=== PATIENT | male | born 1940 | race African-American/Black ===

== ENCOUNTER 2019-02-27 05:38 | Inpatient (IN) | payer OTHER ==
[~2019-02-27] VITALS: Ht 180.3 cm; Wt 62.3 kg
--- NOTE | ~2019-02-27 | HC ---
[facility] [place] [address] CONSULTATION Name: CHELSI ONEAL Room #: 364-P [facility] IN .R.#: [id number] Admission: 02/27/19 Attend Phys: Karsten Dukes MD Discharge: 02/28/19 Date of : 44 Report #: [id number] THIS REPORT FOR: //name// CC: Karsten Dukes Physician staff COMPA JARA DATE OF SERVICE: 02/28/2019 NEPRHOLOGY CONSULTATION ATTENDING PHYSICIAN: Dr. Dukes. REASON FOR CONSULTATION: Chronic kidney disease. HISTORY OF PRESENT ILLNESS: A 78-year-old gentleman with longstanding diabetes and hypertension and gradually chronically progressive chronic kidney disease, recently moved here from [place]. He was followed by a dental office receptionist there. Creatinine is about 3. PAST MEDICAL HISTORY: The patient has longstanding 35 years history of diabetes and hypertension. He had coronary bypass surgery 25 years ago. No subsequent chest pain or stents required. He had prostate cancer about 20 years ago and had cryosurgery. No other treatment. He has had a cervical spine operation with a plate put in his neck due to cervical disk disease and has had chronic right hip pain as well. He also has remote nephrolithiasis. HOME MEDICATIONS: Include amlodipine 10 mg daily, hydralazine 50 mg daily, isosorbide 20 mg daily, Lipitor 40 mg daily, metoprolol tartrate 100 mg daily, iron, furosemide 40 mg daily, Aricept 10 mg daily, and insulin. SOCIAL HISTORY: Recently moved back here from [facility] where he lived most of his life. Remote cigarette smoker, but quit 25 years ago. Occasional social alcohol user. REVIEW OF SYSTEMS: GENERAL: He has felt pretty well. EYES: He apparently did have laser surgery in his right eye, possibly for diabetic changes. ENT: Hearing okay, swallows okay. No mouth sores or ulcers. ENDOCRINE: Positive for the diabetes. RESPIRATORY: Denies shortness of air, cough, hemoptysis, pleuritic pain. CARDIAC: No chest pain, palpitations or swelling. GASTROINTESTINAL: No nausea, vomiting or diarrhea. GENITOURINARY: No dysuria or hematuria. MUSCULOSKELETAL: No arthritis. [facility] [address] [place] [address] CONSULTATION Name: CHELSI ONEAL Room #: 364-P [facility] IN ..#: [id number] Admission: 02/27/19 Attend Phys: Karsten Dukes MD Discharge: 02/28/19 Date of : 44 Report #: [id number] SKIN: No skin rash. NEUROLOGIC: No seizure, syncope, stroke or peripheral neuropathy. PHYSICAL EXAMINATION: GENERAL: This is a reasonably well-appearing gentleman, in no distress. SKIN: Unremarkable. SKELETAL: Well developed, well nourished. HEENT: Extraocular movements are full. No scleral icterus. Hearing and vision are intact. Mucous membranes are moist. Tongue, buccal mucosa is benign. NECK: Supple, no lymphadenopathy or carotid bruits. CHEST: Clear to auscultation. HEART: Regular. ABDOMEN: Soft and nontender. EXTREMITIES: Show no peripheral edema. LABORATORY DATA: Urinalysis showed 1+ protein and evidence of UTI. Hemoglobin is 11.2, sodium 137, potassium 3.4, chloride 104, bicarbonate 23, creatinine 2.9, BUN 46. ASSESSMENT AND PLAN: 1. Chronic kidney disease. He has somewhat advanced chronic kidney disease. He will need to be followed up in our office. He will need chronic follow up here in [place]. At this point, we will continue his home meds as before with further evaluation for chronic kidney disease treatment including preparation for chronic dialysis. 2. Diabetes mellitus, longstanding. 3. Hypertension, longstanding. 4. History of prostate cancer. 6. History of coronary artery bypass surgery. 6. History of cervical spine surgery. 7. Chronic right hip pain. By: [id number] Jose De Jesus Sanabria MD /nt
[2019-02-27 05:41] VITALS: BP 168/81
[2019-02-27] MEDS ORDERED: AMLODIPINE BESY10 MG PO (05:59)
[2019-02-27] MEDS ORDERED: HYDRALAZINE 2525 MG PO (06:00)
[2019-02-27] MEDS ORDERED: LIPITOR40 MG PO (06:01)
[2019-02-27] MEDS ORDERED: FEOSOL325 M1 PO (06:01)
[2019-02-27] MEDS ORDERED: ISOSORBIDE DINITRATE PO (06:01)
[2019-02-27] MEDS ORDERED: PLAVIX 75 MG TA75 M1 PO (06:02)
[2019-02-27] MEDS ORDERED: LASIX 40 MG TAB40 M2 PO (06:02)
[2019-02-27] MEDS ORDERED: LOPRESSOR100 M1 PO (06:02)
[2019-02-27] MEDS ORDERED: ARICEPT 5 MG TAB5 MG PO (06:03)
[2019-02-27] MEDS ORDERED: NOVOLOG100 UNIT/1 (06:04)
[2019-02-27 06:23] LABS: ABSOLUTE NEUTROPHILS 4.4 thou/uL (1.4-8.2); BASOPHILS 0.6 % (0.0-2.0); EOSINOPHILS 0.4 % (0.0-3.0); HEMATOCRIT 35.3 % (42.0-52.0); HEMOGLOBIN 11.6 gm/dL (14.0-18.0); LYMPHOCYTES 9.4 % (24.0-44.0); MCH 28.9 pg (26.0-34.0); MCV 87.4 fL (80.0-100.0); PLATELET COUNT 133 thou/uL (150-400); POLYS 83.6 % (36.0-66.0); RBC 4.04 mil/uL (4.50-6.00); RDW 16.4 % (10.5-14.5); WBC 5.2 thou/uL (4.0-11.0)
[2019-02-27 06:28] LABS: CALCIUM 9.3 mg/dL (8.5-10.1); CREATININE 3.1 mg/dL (0.7-1.3); POTASSIUM 3.9 mmol/L (3.5-5.1)
[2019-02-27 06:36] LABS: MAGNESIUM 2.3 mg/dL (1.8-2.4); TROPONIN-I 0.25 ng/mL (<0.06)
[2019-02-27 09:16] LABS: URINE BILIRUBIN NEGATIVE (Negative); URINE BLOOD NEGATIVE (Negative); URINE CLARITY CLEAR; URINE COLOR YELLOW; URINE GLUCOSE-RANDOM* NEGATIVE (Negative); URINE KETONES NEGATIVE (Negative); URINE LEUKOCYTES-REFLEX 2+ (Negative); URINE NITRITE-REFLEX NEGATIVE (Negative); URINE PROTEIN (DIPSTICK) 1+ (Negative); URINE SPECIFIC GRAVITY 1.015 (1.005-1.035); URINE UROBILINOGEN 0.2 E.U./dl (0.2-1.0)
[2019-02-27 09:25] LABS: BACTERIA-REFLEX >30 Many /HPF (None Seen); CRYSTALS None Seen /LPF (None Seen); HYALINE CASTS 0-3 Few /LPF (None Seen); SQUAMOUS None Seen /LPF (0-3); URINE RBC None Seen /HPF (0-2); WBC CLUMPS Few (None Seen)
[2019-02-27 10:27] VITALS: BP 175/75
[2019-02-27 10:33] VITALS: BP 175/75
[2019-02-27 10:47] VITALS: BP 169/85
--- NOTE | 2019-02-27 10:59 | EKG ---
[address] [address] ELECTROCARDIOGRAM REPORT Name: CHELSI ONEAL Room #: 364-P ADM IN M.R.#: [id number] Admission: 02/27/19 Attend Phys: Karsten Dukes MD Discharge: Date of : 44 Report #: [id number] THIS REPORT FOR: //name// [facility] ED Test Date: 2019-02-27 Test Time: 06:16:34 Pat Name: CHELSI ONEAL Department: Room: 364 Gender: M Warehouse Order Puller: [id number] : 1940 Requested By: Jennifer Gruber Order Number: [id number] MD: David Pacheco Measurements Intervals Prosper Rate: 54 P: 41 VA: 168 QRS: 13 QRSD: 87 T: 7 QT: 500 QTc: 474 Interpretive Statements Sinus bradycardia Nonspecific ST and T wave abnormality No previous ECG available for comparison Electronically Signed On 02-27-2019 10:59:21 CDT by David Pacheco [email or web address] <ELECTRONICALLY SIGNED> By: David Pacheco MD, [facility] 02/27/19 1059 0616 5 David Pacheco MD, FACC /EPI
--- NOTE | 2019-02-27 17:51 | NUR ---
ASSUMED CARE OF PATIENT NEAR 0900 WHEN HE WAS ADMITTED TO . PATIENT RECIEVED ADMISSION ASSESSMENT AND ANTIBIOTIC THERAPY FOR A UTI WELL INSULIN. THERE IS AN ORDER FOR A NEPHROLOGY CONSULT DUE TO POOR LABS.
[2019-02-27 19:31] VITALS: BP 182/86
[2019-02-28 00:15] VITALS: BP 152/79
[2019-02-28 05:05] VITALS: BP 146/66
[2019-02-28 05:49] LABS: HEMATOCRIT 33.4 % (42.0-52.0); HEMOGLOBIN 11.2 gm/dL (14.0-18.0); MCH 29.3 pg (26.0-34.0); MCHC 33.4 g/dL (28.0-37.0); MCV 87.7 fL (80.0-100.0); RBC 3.81 mil/uL (4.50-6.00); RDW 17.3 % (10.5-14.5)
[2019-02-28 06:02] LABS: CALCIUM 8.7 mg/dL (8.5-10.1); CREATININE 2.9 mg/dL (0.7-1.3); POTASSIUM 3.4 mmol/L (3.5-5.1)
--- NOTE | 2019-02-28 07:28 | NUR ---
bp elevated tonight. gave one dose of norvasc and iv hydralazine, with effective resultz. he has rested well tonight. denies pain.
[2019-02-28 08:01] VITALS: BP 142/78
--- NOTE | 2019-02-28 10:41 | NUR ---
INITIAL ASSESSMENT: Received high risk nursing referral. SW reviewed chart and spoke with nursing. Pt was admitted due to UTI/elevated troponin. Renal consulted to evaluate pt. SW met with pt at bedside. Introduced role of SW. Pt is alert/orientated x 4. Pt reports he lives at home with his sister. Prior to admission, pt was independent with ADLs. Pt has a cane. No hx of services or SNF/Rehab placement. Pt's PCP is Dr. Say Jean. This is his new PCP and he had an appt to see him today. Pt states he may be ready for discharge home later today. Pt states he will have transportation home. No SW needs identified at this time, but is available to assist should needs arise.
[2019-02-28] MEDS ORDERED: TYLENOL325 MG PO (12:46)
[2019-02-28] MEDS ORDERED: ISORDIL10 MG PO (12:46)
[2019-02-28] MEDS ORDERED: CEFUROXIME500 MG PO (12:51)
[2019-02-28] MEDS ORDERED: IRON325 PO (13:10)
[2019-02-28 13:15] VITALS: BP 142/78
[2019-02-28 13:24] VITALS: BP 142/78
--- NOTE | 2019-02-28 15:17 | NUR ---
1330- PT GIVEN DISCHARGE INSTRUCTIONS, RX, EDUCATIONAL INFORMATION AND QUESTIONS ANSWERED. PIV AND TELE DC'D. PT CALLED DAUGHTER TO COME PICK HIM UP
== END 2019-02-28 14:10 | disposition home or self-care (01) | DRG 690 ==
LOC: ER 05:38 → 3W 09:58 → EROBS 09:58 → 3W 10:32
PROVIDERS: Emergency Medicine; ADMIT Hospitalist
DX: N39.0 Urinary tract infection, site not specified (principal); N18.4 Chronic kidney disease, stage 4 (severe); I12.9 Hypertensive chronic kidney disease with stage 1 through stage 4 chronic kidney disease, or unspecified chronic kidney disease; E11.22 Type 2 diabetes mellitus with diabetic chronic kidney disease; E78.5 Hyperlipidemia, unspecified; E11.649 Type 2 diabetes mellitus with hypoglycemia without coma; I25.10 Atherosclerotic heart disease of native coronary artery without angina pectoris; E87.6 Hypokalemia; F03.90 Unspecified dementia, unspecified severity, without behavioral disturbance, psychotic disturbance, mood disturbance, and anxiety; G89.29 Other chronic pain; M25.551 Pain in right hip; Z87.891 Personal history of nicotine dependence; Z85.46 Personal history of malignant neoplasm of prostate; Z95.1 Presence of aortocoronary bypass graft; Z79.899 Other long term (current) drug therapy; Z79.4 Long term (current) use of insulin
CPT/HCPCS: 10080

== ENCOUNTER → 2019-05-11 | Outpatient (CLI) | payer OTHER ==
[~2019-05-11] MED LIST: AMLODIPINE BESY10 MG PO; ARICEPT10 M1 PO; CEFUROXIME500 MG PO; CLOPIDOGREL75 MG PO; FEOSOL325 M1 PO; HYDRALAZINE 2525 MG PO; IRON325 PO; ISORDIL10 MG PO; ISOSORBIDE DINITRATE PO; ISOSORBIDE MONO20 MG PO; LASIX 40 MG TAB40 M2 PO; LIPITOR40 MG PO; LOPRESSOR100 M1 PO; NOVOLIN 70100 UNIT/1 SUBQ; NOVOLOG100 UNIT/1; PLAVIX 75 MG TA75 M1 PO; TORSEMIDE10 MG PO; TYLENOL325 MG PO
[2019-05-11 13:55] VITALS: BP 147/79
[2019-05-11 14:50] VITALS: BP 147/79
[2019-05-11 15:10] VITALS: BP 150/85
[2019-05-11 15:40] VITALS: BP 153/92
--- NOTE | 2019-05-11 16:00 | NUR ---
PT HERE FOR 1ST OF 2 INJECTAFER INFUSIONS. REPORTS FATIGUE, WEAKNESS, DYSPNEA ON EXERTION. SISTER, ADRIANA, WITH PT. PT IS CURRENTLY LIVING WITH HIS SISTER, HORTENCIA BUT PLANS TO MOVE WITH HIS SISTER TO THEIR MOM'S HOUSE SOON WHERE SHE WILL HELP CARE FOR HIM. PT HAS JUST MOVED HERE THIS YEAR FROM [place] TO BE NEAR FAMILY. PT AND SISTER INFORMED ABOUT IRON INFUSION AND WHAT TO EXPECT TODAY. TEACHING MATERIALS GIVEN. INJECTAFER INFUSED OVER 30 MIN THEN PT WATCHED AN ADDITIONAL 30 MINUTES. TOLERATED WELL WITH NO S/S REACTION. VSS. PT UP TO BR X 2, USES CANE WHEN HE WALKS BUT HAS TROUBLE D/T R HIP PAIN. ENCOURAGED SISTER TO LOOK INTO GETTING A PT EVALUATION ORDERED FOR PT WHILE HE AWAITS HIP REPLACEMENT. PT DISMISSED IN STABLE CONDITION. SCHEDULED TO RETURN AGAIN NEXT WEEK ON THU.
== END ==
LOC: OPONC 01:32
DX: D50.9 Iron deficiency anemia, unspecified (principal); I12.9 Hypertensive chronic kidney disease with stage 1 through stage 4 chronic kidney disease, or unspecified chronic kidney disease; E11.22 Type 2 diabetes mellitus with diabetic chronic kidney disease; N18.4 Chronic kidney disease, stage 4 (severe); I25.10 Atherosclerotic heart disease of native coronary artery without angina pectoris; Z87.891 Personal history of nicotine dependence; Z85.46 Personal history of malignant neoplasm of prostate
CPT/HCPCS: 95000

== ENCOUNTER → 2019-05-18 | Outpatient (CLI) | payer OTHER ==
[2019-05-18 13:30] VITALS: BP 138/80
[2019-05-18 14:12] VITALS: BP 135/82
[2019-05-18 14:40] VITALS: BP 139/80
--- NOTE | 2019-05-18 14:45 | NUR ---
PT HERE FOR 2ND AND FINAL INJECTAFER INFUSION. REPORTS DOING WELL WITH HIS FIRST WHICH HIS SISTER CONFIRMS. TOLERATED TODAY'S INFUSION TODAY WITHOUT INCIDENT, NO S/S REACTION. VSS. WATCHED FOR 30 MIN POST, DISMISSED IN STABLE CONDITION.
== END ==
LOC: OPONC 00:16
DX: N18.4 Chronic kidney disease, stage 4 (severe) (principal); D50.9 Iron deficiency anemia, unspecified
CPT/HCPCS: 95000

== ENCOUNTER 2019-06-24 22:39 | Inpatient (IN) | payer OTHER ==
[~2019-06-24] VITALS: Ht 175.3 cm; Wt 76.7 kg
[2019-06-24 22:44] VITALS: BP 159/100
[2019-06-24 23:21] LABS: ABSOLUTE NEUTROPHILS 2.7 thou/uL (1.4-8.2); BASOPHILS 1.4 % (0.0-2.0); EOSINOPHILS 2.8 % (0.0-3.0); HEMATOCRIT 36.1 % (42.0-52.0); HEMOGLOBIN 11.5 gm/dL (14.0-18.0); LYMPHOCYTES 17.5 % (24.0-44.0); MONOCYTES 10.2 % (1.0-8.0); POLYS 68.1 % (36.0-66.0); RBC 3.72 mil/uL (4.50-6.00)
[2019-06-24 23:39] LABS: URINE BILIRUBIN NEGATIVE (Negative); URINE BLOOD TRACE (Negative); URINE CLARITY CLEAR; URINE COLOR YELLOW; URINE GLUCOSE-RANDOM* NEGATIVE (Negative); URINE KETONES NEGATIVE (Negative); URINE LEUKOCYTES-REFLEX NEGATIVE (Negative); URINE NITRITE-REFLEX NEGATIVE (Negative); URINE PROTEIN (DIPSTICK) 1+ (Negative); URINE SPECIFIC GRAVITY 1.015 (1.005-1.035); URINE UROBILINOGEN 0.2 E.U./dl (0.2-1.0)
[2019-06-24 23:55] LABS: CALCIUM 8.1 mg/dL (8.5-10.1); CREATININE 3.8 mg/dL (0.7-1.3); POTASSIUM 3.5 mmol/L (3.5-5.1)
[2019-06-24 23:58] LABS: BACTERIA-REFLEX None Seen /HPF (None Seen); CRYSTALS None Seen /LPF (None Seen); HYALINE CASTS 0-3 Few /LPF (None Seen); MUCUS 0-3 Light strn/LPF (None Seen); SQUAMOUS None Seen /LPF (0-3); URINE RBC 0-2 Rare /HPF (0-2); URINE WBC-REFLEX None Seen /HPF (0-5)
[2019-06-25] VITALS (8 sets, daily range): BP systolic 135–163; BP diastolic 74–102
[2019-06-25 00:05] LABS: TROPONIN-I 0.22 ng/mL (<0.06)
[2019-06-25 00:21] LABS: PLATELET COUNT 96 thou/uL (150-400)
[2019-06-25 00:22] LABS: ANISOCYTOSIS 2+; BURR CELLS FEW; OVALOCYTES FEW; PLATELET ESTIMATE DECREASED; POIKILOCYTOSIS 1+
[2019-06-25 00:23] LABS: SCHISTOCYTES OCCASIONAL
[2019-06-25] MEDS ORDERED: PLAVIX 75 MG TA75 MG PO (01:28)
[2019-06-25] MEDS ORDERED: TOPROL XL25 MG PO (01:29)
--- NOTE | 2019-06-25 05:14 | NUR ---
ASSUMED CARE OF PT DURING ADMISSION TO THE UNIT. PT'S A&Ox3 W/ OCCASIONAL CONFUSION. VS STABLE, BP HAS BEEN RUNNING HIGH W/ SBP IN 150'S. LE EDEMA AND PENIS EDEMA IS 3. C/O FEELING LIKE HE HAS TO URINATE AND REQUESTED TO STAND TO WORK IT OUT. AVALOS CATH IS IN PLACE AND LASIX DRIP INITIATED ORDERED. FLUID RESTRICTION FOLLOWED. CURRENTLY RESTING WITH BLE ELEVATED. PROGRESSING TOWARDS POC.
--- NOTE | 2019-06-25 12:33 | 2DMMODE ---
[facility] [address] [place] [address] 2 D/M-MODE ECHOCARDIOGRAM Name: CORY ONEALBECKI Room #: 350-P [facility] IN M.R.#: [id number] Admission: 06/25/19 Attend Phys: Mike Puckett MD Discharge: Date of : 44 Report #: [id number] THIS REPORT FOR: //name// APPROVED REPORT Study performed: 06/25/2019 09:11:50 EXAM: Comprehensive 2D, Doppler, and color-flow Echocardiogram Patient Location: Bedside Room #: 350 Status: on-call BSA: 1.99 HR: 65 bpm BP: 149/87 mmHg Rhythm: NSR Other Information Study Quality: Excellent Indications Bilateral leg edema, dyspnea, acute fluid overload, elevated BNP and troponin. Hx: CABG, DM, HTN. 2D Dimensions RVDd: 46.67 mm IVSd: 12.00 (7-11mm) LVOT Diam: 22.94 (18-24mm) LVDd: 58.00 mm PWd: 12.00 (7-11mm) Ascending Ao: 40.16 (22-36mm) LVDs: 50.68 (25-40mm) Aortic Root: 41.75 mm Volumes Left Atrial Volume (Systole) Single Plane 4CH: 111.11 mL Single Plane 2CH: 110.61 mL LA ESV Index: 59.00 mL/m2 Aortic Valve AoV Peak Chacho.: 0.88 m/s AO Peak Gr.: 3.10 mmHg LVOT Max P.25 mmHg LVOT Max V: 0.75 m/s HERMINIO Vmax: 3.52 cm2 Mitral Valve E/A Ratio: 2.6 [facility] [address] [address] 2 D/M-MODE ECHOCARDIOGRAM Name: CHELSI ONEAL Room #: 350-P [facility] IN [facility]#: [id number] Admission: 06/25/19 Attend Phys: Mike Puckett MD Discharge: Date of : 44 Report #: [id number] MV Decel. Time: 162.81 ms MV E Max Hcacho.: 0.72 m/s MV A Chacho.: 0.28 m/s MV PHT: 47.21 ms IVRT: 72.66 ms Pulmonary Valve PV Peak Chacho.: 0.56 m/s PV Peak Gr.: 1.24 mmHg Pulmonary Vein P Vein S: 0.21 m/s P Vein D: 0.46 m/s P Vein S/D Ratio: 0.46 Tricuspid Valve TR Peak Chacho.: 3.63 m/s RAP Estimate: 15.00 mmHg TR Peak Gr.: 53.00 mmHg PA Pressure: 68.00 mmHg Left Ventricle Left ventricle is at the upper limits of normal. Mild concentric left ventricular hypertrophy. Left ventricular systolic function is severely decreased. LVEF is 20-25%. Severe diastolic dysfunction is present (restrictive filling). Right Ventricle Right ventricle is dilated. Right ventricle is mildly hypokinetic. Atria Left atrium is severely dilated. Right atrium is moderately dilated. Aortic Valve The aortic valve is normal in structure. Mild aortic regurgitation. There is no aortic valvular stenosis. Mitral Valve The mitral valve is normal in structure. Mild to moderate mitral regurgitation. Tricuspid Valve The tricuspid valve is normal in structure. Severe tricuspid regurgitation. Estimated PAP is 65-70mmHg. Pulmonic Valve [facility] [address] [place] [address] 2 D/M-MODE ECHOCARDIOGRAM Name: CHELSI ONEAL Room #: 350[facility] IN .R.#: [id number] Admission: 06/25/19 Attend Phys: Mike Puckett MD Discharge: Date of : 44 Report #: [id number] The pulmonary valve is normal in structure. Moderate pulmonic regurgitation. Great Vessels Aortic root is dilated at 4.2cm. Ascending aorta is dilated at 4.0cm. IVC is dilated and collapses <50% with inspiration. Pericardium There is no pericardial effusion. Left and right pleural effusions noted. <Conclusion> Left ventricle is at the upper limits of normal. Mild concentric left ventricular hypertrophy. Left ventricular systolic function is severely decreased. Severe diastolic dysfunction is present (restrictive filling). Right ventricle is dilated. Right ventricle is mildly hypokinetic. Left atrium is severely dilated. Mild aortic regurgitation. Mild to moderate mitral regurgitation. Severe tricuspid regurgitation. Estimated PAP is 65-70mmHg. <ELECTRONICALLY SIGNED> By: Hakeem Resendiz MD 06/25/19 [phone] Hakeem Resendiz MD /INF
--- NOTE | 2019-06-25 16:31 | NUR ---
ASSUMED PATIENT CARE AT 0700. A/O X4. FORGETFUL. ON LASIX GTT. BLE EDEMA 4+ EDEMA. GENERLIZED WEAKNESS. MAX ASSISTED WHEN UP. NOT TOWARDS POC GOALS.
[2019-06-26 03:23] VITALS: BP 142/82
[2019-06-26 04:21] LABS: ALBUMIN 2.9 g/dL (3.4-5.0); CALCIUM 8.1 mg/dL (8.5-10.1); CREATININE 3.4 mg/dL (0.7-1.3); POTASSIUM 3.4 mmol/L (3.5-5.1)
--- NOTE | 2019-06-26 07:23 | NUR ---
PATINET IS ALERT AND ORIETNED. PATIENT IS UP TIMES TWO. PATIENT DENIES PAIN. PATIENT IS ON FUROSEMIDE DRIP. PATIENT IS RESTING COMFORTABLY IN BED. LEGS ELEVATED. PATIENT IS PROGRESSING TO GOALS. WCM.
[2019-06-26 07:32] VITALS: BP 146/79
[2019-06-26 11:32] VITALS: BP 139/79
[2019-06-26 16:07] VITALS: BP 139/81
[2019-06-26 19:38] VITALS: BP 148/93
[2019-06-27 02:22] VITALS: BP 148/93
[2019-06-27 04:20] VITALS: BP 152/84
--- NOTE | 2019-06-27 06:17 | NUR ---
PATIENT ALERT AND ORIENTED. PATIENT IS UP WITH ONE. PATIENT AMBULATED. PATIENT IS ON ROOM AIR. PATIENT HAD BM THIS SHIFT. PATIENT HAS AVALOS. PATIENT DENIES PAIN. PATIENT IS RESTING COMFORTABLY IN BED.WCM. PATIENT IS PROGRESSING TO GOALS.
[2019-06-27 06:27] LABS: ALBUMIN 2.8 g/dL (3.4-5.0); CALCIUM 8.2 mg/dL (8.5-10.1); CREATININE 3.3 mg/dL (0.7-1.3); PHOSPHORUS 2.6 mg/dL (2.5-4.9); POTASSIUM 3.2 mmol/L (3.5-5.1)
[2019-06-27 07:37] VITALS: BP 142/79
--- NOTE | 2019-06-27 10:54 | NUR ---
INITIAL ASSESSMENT: Pt evaluated for d/c planning needs. Reviewed chart and spoke with nurse and pt. Pt is alert and oriented. Pt states he lives in house with his sister. Pt has cane at home, and has had home health in the past. Pt plans on returning home on d/c from hospital. Will remain available to assist as needed.
[2019-06-27 11:13] VITALS: BP 141/76
[2019-06-27 15:43] VITALS: BP 137/78
[2019-06-27 19:18] VITALS: BP 145/75
--- NOTE | 2019-06-28 04:51 | NUR ---
ASSUMED CARE OF PATIENT AT 1900. VSS, AFEBRILE. CONCERNED ABOUT CONSTIPATION. GIVEN SCHEDULED DOCUSATE, EFFECTIVE RESULTS. LASIX GTT INFUSING, URINE OUTPUT CHARTED. PROGRESSING TOWARDS POC GOALS.
[2019-06-28 05:17] VITALS: BP 144/83
[2019-06-28 05:41] LABS: ALBUMIN 2.8 g/dL (3.4-5.0); CALCIUM 8.2 mg/dL (8.5-10.1); CREATININE 3.4 mg/dL (0.7-1.3); PHOSPHORUS 2.6 mg/dL (2.5-4.9); POTASSIUM 3.6 mmol/L (3.5-5.1)
[2019-06-28 06:53] VITALS: BP 146/83
[2019-06-28 11:11] VITALS: BP 137/80
--- NOTE | 2019-06-28 14:32 | NUR ---
ANTONI reviewed chart and spoke with nursing and attending physician. Pt is progressing towards goals for discharge. Discharge home is anticipated in 1-2 days. Recommendation made for pt to have home health services. ANTONI met with pt at bedside to discuss discharge plan. Pt is agreeable with HH services. SW confirmed pt's home address and phone number. SW offered options for HH agencies. No preference voiced. logistics planner to fax referral to [facility] due to insurance. Plan is for pt to discharge home with HH when medically stable. ANTONI is following to assist as needed with discharge planning.
--- NOTE | 2019-06-28 14:43 | NUR ---
DISCHARGE PLANNING. ANTICIPATED DISCHARGE PLANNED FOR 1-2 DAYS. DISCHARGE PLAN IS TO HOME WITH HOME HEALTH SERVICES. PATIENT REFERRAL FAXED TO [facility] PER REQUEST. CALL PLACED TO TANVI JUNIOR INTAKE LIAISON TO NOTIFY. FOLLOWING.
[2019-06-28 15:03] VITALS: BP 135/77
--- NOTE | 2019-06-28 18:25 | NUR ---
Assumed care approx. 0700 this AM. Patient ALOx4 and forgetful. Patient on room air and SR on the monitor. Blood sugar of 61 this AM- one juice given plus breakfast raised sugar to 108. Lasix gtt still infusing per orders. 2200 ml out of Herrera catheter. Family to visit at beside this afternoon & think his lower extremities are as swollen or worse than when brought in. Pt appears stagnant on progressing toward plan of care goals at this time.
[2019-06-28 19:09] VITALS: BP 137/81
[2019-06-28 22:00] VITALS: BP 137/81
[2019-06-29 00:05] LABS: GLYCOHEMOGLOBIN (HGB A1C) 7.4 % (4.8-5.6)
--- NOTE | 2019-06-29 03:44 | NUR ---
patient is alert and oriented. patient is up with assistance. patient is on room air. patient is encouraged to elevated legs. patient is on lasix drip with mejia. patient denies pain. wcm. patient is resting comfortably
[2019-06-29 04:00] VITALS: BP 152/92
[2019-06-29 05:11] LABS: HEMATOCRIT 37.1 % (42.0-52.0); HEMOGLOBIN 11.9 gm/dL (14.0-18.0); MCH 31.1 pg (26.0-34.0); MCHC 32.1 g/dL (28.0-37.0); RBC 3.82 mil/uL (4.50-6.00); RDW 18.7 % (10.5-14.5); WBC 3.2 thou/uL (4.0-11.0)
[2019-06-29 05:25] LABS: ALBUMIN 3.1 g/dL (3.4-5.0); CALCIUM 8.9 mg/dL (8.5-10.1); CREATININE 3.4 mg/dL (0.7-1.3); PHOSPHORUS 2.9 mg/dL (2.5-4.9)
[2019-06-29 07:00] VITALS: BP 150/86
[2019-06-29 08:26] VITALS: BP 150/86
[2019-06-29 11:27] VITALS: BP 130/74
--- NOTE | 2019-06-29 11:42 | NUR ---
ANTONI reviewed chart and spoke with nursing and attending physician. Pt remains on lasix gtt. Discharge home with HH is anticipated in 1-2 days. [facility] is able to accept pt on service. Dr. Argueta will follow pt for HH orders. [facility]. ANTOIN is following to assist as needed with discharge planning.
--- NOTE | 2019-06-29 15:02 | NUR ---
Assumed care approx. 0700 this AM. Patient ALOx4 with no acute changes this shift. Patient remains on lasix gtt per orders. Pt still edematous but appears to be less swollen than previously. Herrera catheter intact with great output. BLE wraps intact. Patient up with cane and walker today, pt shuffles some and moves very slow. Fall precautions in place. Family at bedside to visit. Will continue to monitor. Pt slowly progressing toward plan of care goals.
[2019-06-29 15:44] VITALS: BP 129/75
[2019-06-29 20:26] VITALS: BP 132/77
[2019-06-30 03:48] VITALS: BP 138/83
--- NOTE | 2019-06-30 06:05 | NUR ---
PT MAKING PROGRESS TOWARDS GOALS. SEE I&O. PT HAD LARGE AM0UNT OF URINE OUTPUT VIA CATHETER. URINE CLEAR YELLOW. PT AND FAMILY REPORTING THAT THE EDEMA IN BOTH HIS LUNGS HAS BEEN GREATLY REDUCED. PT DID STATE THAT HIS LEGS FEEL "BETTER."
[2019-06-30 06:17] LABS: CREATININE 3.4 mg/dL (0.7-1.3); POTASSIUM 3.6 mmol/L (3.5-5.1)
[2019-06-30 07:32] VITALS: BP 130/69
[2019-06-30 11:22] VITALS: BP 125/65
--- NOTE | 2019-06-30 13:57 | NUR ---
SW reviewed chart and spoke with nursing and attending physician. Pt remains on lasix gtt. Discharge home with HH is anticipated in 1-2 days. SW met with pt at bedside to provide update and discuss discharge plan. Pt is aware and in agreement with discharge plan. SW is following to assist as needed with discharge planning.
[2019-06-30 15:43] VITALS: BP 133/69
--- NOTE | 2019-06-30 15:53 | NUR ---
pt is A&OX3, PT's vs are stable, pt's BLE edema has improved, pt's IV lasix drip has D/C at 0900am, and pt has started Torsemide 40mg po bid, pt gets up to chair with assist, pt denies pain and sob by this time.
[2019-06-30 19:24] VITALS: BP 144/71
[2019-07-01 04:48] VITALS: BP 143/84
[2019-07-01 04:55] LABS: ALBUMIN 3.1 g/dL (3.4-5.0); CREATININE 3.5 mg/dL (0.7-1.3); PHOSPHORUS 3.2 mg/dL (2.5-4.9)
--- NOTE | 2019-07-01 05:43 | NUR ---
PT MAKING PROGRESS TOWARDS GOALS. HAS DENIED ANY COMPLAINTS OVERNIGHT. DENIES ANY SOA. 2500ML UOP VIA AVALOS OVERNIGHT.
[2019-07-01 07:32] VITALS: BP 138/84
[2019-07-01 11:26] VITALS: BP 131/79
[2019-07-01] MEDS ORDERED: TORSEMIDE20 MG PO (12:54)
[2019-07-01] MEDS ORDERED: METOLAZONE 5 MG5 MG PO (13:08)
[2019-07-01] MEDS ORDERED: POTASSIUM20 PO (13:09)
[2019-07-01 13:16] VITALS: BP 131/79
--- NOTE | 2019-07-01 14:03 | NUR ---
DISCHARGE NOTE: SW reviewed chart and spoke with nursing and attending physician. Pt is medically stable for discharge home today with [facility] . SW met with pt at bedside to discuss discharge. Pt is aware and agreeable with discharge plan. Pt states his sister will provide transportation home. planner/scheduler faxed discharge orders/summary to [facility] . Contact info for [facility] placed in pt's discharge summary. No additional SW needs identified at this time, but is available to assist should needs arise.
[2019-07-01 15:28] VITALS: BP 131/79
--- NOTE | 2019-07-01 16:31 | NUR ---
PT A&OX4, VSS, DENIES PAIN. PATIENT DISCHARGED HOME WITH HOME HEALTH.
--- NOTE | 2019-07-06 07:32 | HC ---
[facility] [place] [address] CONSULTATION Name: CHELSI ONEAL Room #: 350-[facility] IN M.R.#: [id number] Admission: 06/25/19 Attend Phys: Mike Puckett MD Discharge: 07/01/19 Date of : 44 Report #: [id number] THIS REPORT FOR: //name// CC: Mike Puckett [facility] physician/PCP DATE OF SERVICE: 06/25/2019 REASON FOR CONSULTATION: Elevated creatinine. REASON FOR PRESENTATION: Increased swelling. HISTORY OF PRESENT ILLNESS: A 78-year-old with extensive past medical history including and not limited to chronic kidney disease, who used to follow up with a economic manager back in [place] and was told that he will likely need dialysis. He is known to have diabetes mellitus, hypertension, status post coronary artery bypass graft. He presented with significantly worsening bilateral lower extremity swelling, scrotal swelling with no improvement in his overall conditions in the last few days. He takes torsemide, but this has not been helping him. He denies any changes in his medications. No nonsteroidal anti-inflammatory medication usage. He does not really know if he sees a kidney doctor here in town or not; however, we have evaluated him back in 02/2019 and at that time, he had a creatinine value of 3.0. Diuretic regimen was initiated for the patient during that period of time. He saw Dr. Sanabria. He was supposed to see somebody in our office as a followup, but he does not recall if he has seen somebody or not. PAST MEDICAL HISTORY: Extensive and includes the followin. Coronary artery disease, post coronary artery bypass graft. 2. Prostate cancer. 3. Diabetes mellitus. 4. Hypertension. 5. Cervical spine surgery. 6. Chronic kidney disease. 7. Remote history of nephrolithiasis. SOCIAL HISTORY: He used to live in [place]. Remote cigarette smoking. REVIEW OF SYSTEMS: GENERAL: Significant for increased fatigue and weakness. CARDIOVASCULAR: Significant for dyspnea on exertion. No chest pain or palpitation. PULMONARY: Significant for dyspnea on exertion. No cough or hemoptysis. GASTROINTESTINAL: No nausea or vomiting. GENITOURINARY: Decreased urine output. MUSCULOSKELETAL: Extensive anasarca. [facility] [address] [place] [address] CONSULTATION Name: CHELSI ONEAL Room #: 350-P [facility] IN ..#: [id number] Admission: 06/25/19 Attend Phys: Mike Puckett MD Discharge: 07/01/19 Date of : 44 Report #: [id number] MEDICATIONS: 1. Plavix. 2. Atorvastatin. 3. Torsemide. PHYSICAL EXAMINATION: GENERAL: Alert, oriented. VITAL SIGNS: Blood pressure 156/98, pulse rate 76. HEAD AND NECK: No jugular venous distention. CHEST: Decreased air entry bilaterally. CARDIOVASCULAR: No rub detected. ABDOMEN: Extensive abdominal wall edema. LOWER EXTREMITIES: Extensive sacral edema. Lower extremity edema. LABORATORY DATA: Reviewed. Sodium 143, potassium 3.5, BUN is 60, creatinine is 3.8, glucose 233. White blood cell count is 4000. Hemoglobin is 11.5, platelet is 96,000. ASSESSMENT, IMPRESSION, AND PLAN: 1. Chronic kidney disease. 2. Extensive anasarca. 3. Escalate the dose of his diuretics to 20 mL an hour. Might even consider adding another diuretic regimen in the next day or so, based on his progress. 4. Salt restrictions. 5. We will likely need to initiate dialysis given his significant anasarca if he does not respond to medical management. <ELECTRONICALLY SIGNED> By: Eleuterio Judge MD 07/06/19 0732 0613 [id number] Eleuterio Judge MD /nt
== END 2019-07-01 16:49 | disposition home health service (06) | DRG 682 ==
LOC: ER 22:39 → EROBS 06-25 00:39 → 3W 06-25 00:39 → ENTRNSPT 07-01 16:23 → 3W 07-01 16:49
PROVIDERS: Emergency Medicine; Hospitalist; ADMIT Hospitalist
DX: N17.9 Acute kidney failure, unspecified (principal); I50.43 Acute on chronic combined systolic (congestive) and diastolic (congestive) heart failure; I12.0 Hypertensive chronic kidney disease with stage 5 chronic kidney disease or end stage renal disease; I42.9 Cardiomyopathy, unspecified; N18.6 End stage renal disease; E87.70 Fluid overload, unspecified; E11.22 Type 2 diabetes mellitus with diabetic chronic kidney disease; I25.10 Atherosclerotic heart disease of native coronary artery without angina pectoris; M25.551 Pain in right hip; G89.29 Other chronic pain; K59.00 Constipation, unspecified; E78.5 Hyperlipidemia, unspecified; I89.0 Lymphedema, not elsewhere classified; D63.8 Anemia in other chronic diseases classified elsewhere; R33.9 Retention of urine, unspecified; E87.6 Hypokalemia; Z79.4 Long term (current) use of insulin; Z95.1 Presence of aortocoronary bypass graft; Z85.46 Personal history of malignant neoplasm of prostate; Z87.442 Personal history of urinary calculi
CPT/HCPCS: 10879

== ENCOUNTER 2019-10-05 11:03 | Emergency (ER) | payer OTHER ==
[~2019-10-05] VITALS: Ht 180.3 cm; Wt 72.6 kg
[~2019-10-05 11:03] MED LIST changes: +METOLAZONE 5 MG5 MG PO; +PLAVIX 75 MG TA75 MG PO; +POTASSIUM20 PO; +TOPROL XL25 MG PO; +TORSEMIDE20 MG PO
[2019-10-05 13:38] VITALS: BP 156/97
== END 2019-10-05 13:30 | disposition home or self-care (01) ==
LOC: ER 11:03
DX: S93.602A Unspecified sprain of left foot, initial encounter (principal); S01.111A Laceration without foreign body of right eyelid and periocular area, initial encounter; E11.9 Type 2 diabetes mellitus without complications; I10 Essential (primary) hypertension; I25.10 Atherosclerotic heart disease of native coronary artery without angina pectoris; E78.5 Hyperlipidemia, unspecified; Z85.46 Personal history of malignant neoplasm of prostate; G89.29 Other chronic pain; Z79.899 Other long term (current) drug therapy; Z79.4 Long term (current) use of insulin; Z98.61 Coronary angioplasty status; W19.XXXA Unspecified fall, initial encounter; Y93.89 Activity, other specified; Y92.89 Other specified places as the place of occurrence of the external cause; Y99.8 Other external cause status

== ENCOUNTER 2019-10-11 11:08 | Emergency (ER) | payer OTHER ==
[~2019-10-11] VITALS: Ht 172.7 cm; Wt 74.8 kg
[2019-10-11 11:09] VITALS: BP 142/77
== END 2019-10-11 11:54 | disposition home or self-care (01) ==
LOC: ER 11:08
DX: S05.42XD Penetrating wound of orbit with or without foreign body, left eye, subsequent encounter (principal); I25.10 Atherosclerotic heart disease of native coronary artery without angina pectoris; E78.5 Hyperlipidemia, unspecified; G89.29 Other chronic pain; I12.9 Hypertensive chronic kidney disease with stage 1 through stage 4 chronic kidney disease, or unspecified chronic kidney disease; E11.22 Type 2 diabetes mellitus with diabetic chronic kidney disease; N18.4 Chronic kidney disease, stage 4 (severe); Z85.46 Personal history of malignant neoplasm of prostate; Z86.2 Personal history of diseases of the blood and blood-forming organs and certain disorders involving the immune mechanism; Z95.1 Presence of aortocoronary bypass graft; X58.XXXD Exposure to other specified factors, subsequent encounter

== ENCOUNTER 2020-02-12 15:02 | Emergency (ER) | payer OTHER ==
[~2020-02-12] VITALS: Ht 172.7 cm; Wt 68.5 kg
[2020-02-12] MEDS ORDERED: ASA81BEC PO (15:26)
[2020-02-12] MEDS ORDERED: VITAMIN D325 MC1 PO (15:28)
[2020-02-12] MEDS ORDERED: NORCO 5-325 TA1 EAC2 PO (17:29)
[2020-02-12] MEDS ORDERED: LIDOCAINE PAIN1 EACH TRANSDERM (17:29)
[2020-02-12 17:57] VITALS: BP 159/80
== END 2020-02-12 17:58 | disposition home or self-care (01) ==
LOC: ER 15:02
DX: S20.211A Contusion of right front wall of thorax, initial encounter (principal); I10 Essential (primary) hypertension; E11.9 Type 2 diabetes mellitus without complications; E78.5 Hyperlipidemia, unspecified; I25.10 Atherosclerotic heart disease of native coronary artery without angina pectoris; Z95.1 Presence of aortocoronary bypass graft; Z79.4 Long term (current) use of insulin; Z79.82 Long term (current) use of aspirin; Z79.899 Other long term (current) drug therapy; W05.0XXA Fall from non-moving wheelchair, initial encounter; Y93.89 Activity, other specified; Y92.89 Other specified places as the place of occurrence of the external cause; Y99.8 Other external cause status